=== PATIENT | male | born 1950 | race Caucasian/White ===

== ENCOUNTER 2017-09-23 05:36 | Day surgery (SDC) | payer BC ==
[2017-09-23] MEDS: BUPIVACAINE 0.25% (MPF) 30 ML INJ
[2017-09-23] MEDS: SOD CHLORIDE 0.9% 1,000 ML IV (07:16)
[2017-09-23] MEDS ORDERED: METOCLOPRAMIDE 10 MG INJ (07:31)
[2017-09-23] MEDS ORDERED: ONDANSETRON 4 MG INJ (07:31)
[2017-09-23] MEDS ORDERED: ROCURONIUM 50 MG INJ (07:31)
[2017-09-23] MEDS ORDERED: PROPOFOL 20 ML (07:31)
[2017-09-23] MEDS ORDERED: ROPIVACAINE 0.5 % 30 ML VIAL (07:31)
[2017-09-23] MEDS ORDERED: NEOSTIGMINE 3 MG/3 ML SYRINGE (07:31)
[2017-09-23] MEDS ORDERED: GLYCOPYRROLATE 0.4 MG INJ (07:31)
[2017-09-23] MEDS ORDERED: MIDAZOLAM 1 MG/ML 2 ML INJ (07:31)
[2017-09-23] MEDS ORDERED: CEFAZOLIN 1 GM INJ (08:00)
[2017-09-23] MEDS: POLYMYXIN/BACITRACIN 1L IRRIG IRR ×2 (08:18)
[2017-09-23] MEDS: HYDROmorphONE 1 MG/5 ML IV SYRINGE IV (08:58)
[2017-09-23] MEDS: KETOROLAC 30 MG INJ IV (08:59)
[2017-09-23] MEDS ORDERED: OXYCODONE/ACETAMINOPHEN (5/325) TAB PO ×2 (09:00)
[2017-09-23] MEDS ORDERED: HYDROCODONE/APAP (5/325) TAB PO (09:00)
[2017-09-23] MEDS ORDERED: MEPERIDINE 25 MG INJ IV (09:00)
[2017-09-23] MEDS ORDERED: ONDANSETRON 4 MG INJ IV (09:00)
[2017-09-23] MEDS ORDERED: HYDROmorphONE 1 MG/5 ML IV SYRINGE IV ×2 (09:00)
[2017-09-23] MEDS ORDERED: DIPHENHYDRAMINE 50 MG INJ IV (09:00)
[2017-09-23] MEDS ORDERED: EPHEDrine SULFATE 50 MG/5 ML SYG (09:25)
[2017-09-23] MEDS ORDERED: POLYMYXIN/BACITRACIN 1L IRRIG (09:35)
== END 2017-09-25 12:47 | disposition home or self-care (01) ==
LOC: SDS 09-25 12:47
DX: K40.90 Unilateral inguinal hernia, without obstruction or gangrene, not specified as recurrent (principal)
CPT/HCPCS: 49507